=== PATIENT | female | born 1990 | race Caucasian/White ===

== ENCOUNTER 2017-12-31 03:16 | Emergency (ER) | payer MEDICAID ==
[~2017-12-31] VITALS: Ht 157.5 cm; Wt 51.7 kg
[2017-12-31 03:28] VITALS: BP 166/100
== END 2017-12-31 04:18 | disposition home or self-care (01) ==
LOC: ER 03:23
DX: O99.341 Other mental disorders complicating pregnancy, first trimester (principal); F41.0 Panic disorder [episodic paroxysmal anxiety]; Z3A.12 12 weeks gestation of pregnancy
CPT/HCPCS: 99284; A4606; Z7610